=== PATIENT | male | born 1960 ===

== ENCOUNTER 2019-05-04 01:32 | Outpatient (CLI) | payer SELFPAY ==
[2019-05-04 10:38] LABS: HEMOGLOBIN A1C 5.5 % (4.5-6.2)
[2019-05-04 11:09] LABS: CHOL/HDL RATIO 3.56 (0.00-4.99)
== END 2019-05-04 23:59 | disposition home or self-care (01) ==
LOC: HW HEART 01:32
DX: Z13.6 Encounter for screening for cardiovascular disorders (principal)
CPT/HCPCS: 36415; G0438